=== PATIENT | male | born 1935 | race Caucasian/White ===

== ENCOUNTER 2016-12-27 12:07 | Observation (INO) | payer MEDICARE, OTHER, BC ==
[2016-12-27] MEDS ORDERED: SODIUM CHLORIDE 0.9% 1,000 ML IV ONE ×2 (13:42)
[2016-12-27] MEDS ORDERED: HYDROcod/ACETAM 5/325 MG TABLET PO PRN (14:30)
[2016-12-27] MEDS ORDERED: ACETAMINOPHEN 325 MG TABLET PO PRN (14:30)
[2016-12-27] MEDS ORDERED: NITROGLYCERIN SL 0.4 MG TABLET SL PRN (14:30)
[2016-12-27] MEDS ORDERED: SODIUM CHLORIDE FLUSH 0.9% 10 ML SYRINGE IVP PRN (14:30)
[2016-12-27] MEDS ORDERED: MORPHINE 2 MG/ML SYRINGE IVP PRN (14:30)
[2016-12-27] MEDS ORDERED: ONDANSETRON 4 MG/2 ML VIAL IVP PRN (14:30)
[2016-12-27] MEDS ORDERED: HYDROcod/ACETAM 10 MG/325 MG TABLET PO PRN (14:30)
[2016-12-27] MEDS ORDERED: ZOLPIDEM 5 MG TABLET PO PRN (14:30)
[2016-12-27] MEDS: SODIUM CHLORIDE 0.9% 1,000 ML IV SCH ×2 (15:21→20:47)
[2016-12-27] MEDS: CARVEDILOL 3.125 MG TABLET PO SCH (20:21)
[2016-12-27] MEDS: FLUTICASONE NASAL SPRAY NAS SCH (20:22)
[2016-12-27] MEDS: SODIUM CHLORIDE FLUSH 0.9% 10 ML SYRINGE IVP SCH (20:26)
[2016-12-27] MEDS ORDERED: ATORVASTATIN 10 MG TABLET PO SCH (21:00)
[2016-12-28] MEDS: SODIUM CHLORIDE 0.9% 1,000 ML IV SCH (06:39)
[2016-12-28] MEDS: SODIUM CHLORIDE FLUSH 0.9% 10 ML SYRINGE IVP SCH ×2 (06:47→14:08)
[2016-12-28] MEDS ORDERED: PANTOPRAZOLE 40 MG TABLET PO SCH (07:00)
[2016-12-28] MEDS ORDERED: ENOXAPARIN 40 MG/0.4 ML SYRINGE SUBQ SCH (09:00)
[2016-12-28] MEDS ORDERED: POLYETHYLENE GLYCOL 3350 17 GM PACKET PO SCH (09:00)
[2016-12-28] MEDS ORDERED: ASPIRIN EC 81 MG TABLET PO SCH (09:00)
[2016-12-28] MEDS ORDERED: CLOPIDOGREL 75 MG TABLET PO SCH (09:00)
[2016-12-28] MEDS ORDERED: LISINOPRIL 5 MG TABLET PO SCH (09:00)
[2016-12-28] MEDS: CARVEDILOL 3.125 MG TABLET PO SCH (09:28)
[2016-12-28] MEDS: FLUTICASONE NASAL SPRAY NAS SCH ×2 (09:28→09:37)
[2016-12-28] MEDS ORDERED: METOPROLOL 5 MG/5 ML VIAL IVP STA (10:08)
== END 2016-12-28 14:48 | disposition home or self-care (01) ==
DX: R42 Dizziness and giddiness (principal); I25.10 Atherosclerotic heart disease of native coronary artery without angina pectoris; I10 Essential (primary) hypertension; I69.354 Hemiplegia and hemiparesis following cerebral infarction affecting left non-dominant side; I48.91 Unspecified atrial fibrillation; I69.398 Other sequelae of cerebral infarction; J38.00 Paralysis of vocal cords and larynx, unspecified; I65.29 Occlusion and stenosis of unspecified carotid artery; I25.2 Old myocardial infarction; Z95.5 Presence of coronary angioplasty implant and graft; Z79.82 Long term (current) use of aspirin; Z79.02 Long term (current) use of antithrombotics/antiplatelets; Z86.69 Personal history of other diseases of the nervous system and sense organs; Z87.891 Personal history of nicotine dependence; Z90.79 Acquired absence of other genital organ(s)
CPT/HCPCS: 36415; 71010; 80048; 80053; 80061; 83690; 84484; 85025; 93005; 93010; 93306; 96360; 96361; 96372; 99284; A9270; G0378; J1650

== ENCOUNTER 2017-11-09 08:00 | Outpatient (CLI) | payer MEDICARE, BC ==
[2017-11-09 19:17] LABS: ALBUMIN 4.5 g/dL (3.2-5.5); ALBUMIN/GLOBULIN RATIO 1.7 (1.0-2.2); ALKALINE PHOSPHATASE 39 IU/L (42-121); ALT ALANINE AMINOTRANSFERASE 19 IU/L (10-60); AST ASPARTATE AMINOTRANSFERASE 19 IU/L (10-42); BILIRUBIN,TOTAL 0.9 mg/dL (0.2-1.0); BUN - BLOOD UREA NITROGEN 14 mg/dL (6-20); CARBON DIOXIDE - CO2 27 mmol/L (21-32); CHLORIDE 102 mmol/L (101-111); CHOL/HDL RATIO 2.9 (<5.0); CHOLESTEROL 141 mg/dL; CREATININE 0.9 mg/dL (0.6-1.2); GFR - MDRD 81 (>89); GLUCOSE 84 mg/dL (70-100); HDL CHOLESTEROL 49 mg/dL; LDL CHOLESTEROL,CALCULATED 79 mg/dL; LDL/HDL RATIO 1.6 (<3.6); SODIUM 137 mmol/L (135-145); TOTAL PROTEIN 7.1 g/dL (6.7-8.2); VLDL CHOLESTEROL 13 mg/dL
[2017-11-09 19:23] LABS: BASOPHILS % (AUTO) 0.1 %; EOSINOPHILS % (AUTO) 1.1 %; HGB - HEMOGLOBIN 13.7 g/dL (14.0-18.0); LYMPHOCYTES # (AUTO) 1.9 10^3/uL (1.5-3.5); LYMPHOCYTES % (AUTO) 46.8 %; MEAN CORPUSCULAR HGB CONC 33.2 g/dL (32.0-36.0); MEAN CORPUSCULAR VOLUME 81.4 fL (80.0-94.0); MEAN PLATELET VOLUME 8.9 fL (7.4-11.4); MONOCYTES # (AUTO) 0.3 10^3/uL (0.0-1.0); MONOCYTES % (AUTO) 6.7 %; NEUTROPHILS # (AUTO) 1.8 10^3/uL (1.5-6.6); NEUTROPHILS % (AUTO) 45.3 %; PLT - PLATELET COUNT 129 10^3/uL (130-450); RED BLOOD COUNT 5.07 10^6/uL (4.70-6.10); RED CELL DISTRIBUTION WIDTH 14.1 % (12.0-15.0)
== END 2017-11-09 08:01 | disposition home or self-care (01) ==
LOC: LAB.WCP 08:00
PROVIDERS: ATTEND Family Medicine
DX: I25.10 Atherosclerotic heart disease of native coronary artery without angina pectoris (principal)
CPT/HCPCS: 36415; 80053; 80061; 83721; 85025

== ENCOUNTER 2017-12-07 22:09 | Outpatient (CLI) | payer MEDICARE, BC | END 2017-12-07 22:10 | disposition EMS.NT | LOC: EMS 22:09 | PROVIDERS: ATTEND Surgery | DX: Z03.89 Encounter for observation for other suspected diseases and conditions ruled out (principal); W18.30XA Fall on same level, unspecified, initial encounter; Y92.009 Unspecified place in unspecified non-institutional (private) residence as the place of occurrence of the external cause; Z79.01 Long term (current) use of anticoagulants ==

== ENCOUNTER 2017-12-07 23:27 | Emergency (ER) | payer MEDICARE, BC ==
[2017-12-07] MEDS ORDERED: BACITRACIN OINT TOP STA (23:35)
[2017-12-07] MEDS ORDERED: BACITRACIN OINT TOP ONE (23:45)
--- NOTE | 2017-12-08 00:34 | ED Physician Documentation ---
PD HPI Fall - Stated complaint Stated Complaint: GLF - Chief complaint Chief Complaint: Laceration - History obtained from History obtained from: Patient, Family - History of Present Illness Mechanism of injury: Slipped Fall distance: Standing position Timing - onset: Today Injury(ies) location: Head, Left Lower Extremity Quality of pain: Aching Associated symptoms: No: LOC, AMS Contributing factors: Anticoagulated Recently seen: Not recently seen - Additional information Additional information: Patient is an 82 year old male with a history of mulitple strokes with left side deficit, and prior brain surgery who is presenting to the emergency department after falling. According to patient and the patient had taken a long shower and when he was getting out he slipped and fell, Patient scraped his left shoulder and bumped the side of his right head. Review of Systems Constitutional: reports: Reviewed and negative Eyes: denies: Decreased vision, Photophobia Ears: denies: Ear pain, Drainage/discharge Nose: denies: Epistaxis Throat: denies: Dental pain / toothache Cardiac: reports: Reviewed and negative Respiratory: reports: Reviewed and negative GI: denies: Nausea, Vomiting : reports: Reviewed and negative Skin: reports: Lesions, Abrasion (s) Musculoskeletal: reports: Extremity pain Neurologic: reports: Head injury. denies: Generalized weakness, Focal weakness , Headache, LOC Immunocompromised: denies: Immunocompromised PD PAST MEDICAL HISTORY - Past Medical History Past Medical History: Yes Cardiovascular: IN Respiratory: Sleep apnea Neuro: CVA, Head injury, Other Endocrine/Autoimmune: None GI: None : Benign prostate hypertrophy HEENT: Chronic hearing loss Psych: None Musculoskeletal: Osteoarthritis Derm: Eczema Other Past Medical History: L sided deficit - Past Surgical History Past Surgical History: Yes Cardiovascular: Coronary stent Neuro: Craniotomy - Present Medications Home Medications: Ambulatory Orders Medication Instructions Recorded Confirmed Clopidogrel Bisulfate [Plavix] 75 mg PO DAILY 06/24/15 12/27/16 Aspirin [Aspir-Low] 81 mg DAILY 12/27/16 12/27/16 Carvedilol [Coreg] 6.25 mg PO BID 12/27/16 12/27/16 Fluticasone [Flonase] 2 sprays GABRIELLA BID 12/27/16 12/27/16 Lisinopril 5 mg PO DAILY 12/27/16 12/27/16 Polyethylene Glycol 3350 [Miralax] 17 - 34 gm PO DAILY PRN 12/27/16 12/27/16 Rosuvastatin Calcium [Crestor] 10 mg PO QPM 12/27/16 12/27/16 - Allergies Allergies/Adverse Reactions: Allergies Allergy/AdvReac Type Severity Reaction Status Date / Time No Known Drug Allergies Allergy Verified 12/07/17 23:39 - Social History Does the pt smoke?: No Smoking Status: Never smoker Does the pt drink ETOH?: No Does the pt have substance abuse?: No - Immunizations Immunizations are current?: No Immunizations: TDAP current <10years - POLST Patient has POLST: No PD ED PE NORMAL - Vitals Vital signs reviewed: Yes - General General: Alert and oriented X 3, No acute distress - Neck Neck: Supple, no meningeal sign, No bony TTP - Cardiac Cardiac: RRR, No murmur - Respiratory Respiratory: No respiratory distress - Abdomen Abdomen: Soft - Neuro Neuro: Alert and oriented X 3, Normal speech Eye Opening: Spontaneous Motor: Obeys Commands Verbal: Oriented GCS Score: 15 PD ED PE EXPANDED - HEENT HEENT: Head injury (mild tenderness to right posterior scalp, no active bleeding ) - Extremities Extremities: Left shoulder (decreased rom secondary to stroke with abrasion on posterior shoulder) Results - Vitals Vitals: Vital Signs - 24 hr 12/07/17 12/08/17 12/08/17 23:33 00:35 01:25 Temperature 36.4 C L Heart Rate 64 59 L 60 Respiratory 19 16 18 Rate Blood Pressure 152/79 H 163/85 H 148/85 H O2 Saturation 96 97 100 Oxygen O2 Source Room air - Rads (name of study) shoulder x-ray Radiology: Final report received (no acute bony abnormality) ct head Radiology: Final report received (no acute findings) PD MEDICAL DECISION MAKING - ED course Complexity details: reviewed old records, reviewed results, re-evaluated patient , considered differential, d/w patient, d/w family ED course: Patient was seen and examined at bedside. Imaging was ordered. when patient returned the results were reviewed. there was no acute findings. Patient's wound was cleaned. Patient required no further work up and was stable for discharge with outpatient follow up. Departure - Departure Disposition: 01 Home, Self Care Clinical Impression: Abrasion Condition: Good Instructions: ED Abrasion Follow-Up: primary,care provider [Other] - As Needed Comments: there were no acute abnormalities on the imaging today. You should keep the wound clean and dry and apply topical antibiotics as needed. You can follow up with your doctor as needed for re-evaluation. Discharge Date/Time: 12/08/17 01:27
--- NOTE | 2017-12-08 00:40 | XRAY Report ---
EXAM: LEFT SHOULDER RADIOGRAPHY EXAM DATE: 12/08/2017 12:11 AM. CLINICAL HISTORY: Fall, shoulder pain. COMPARISON: None. TECHNIQUE: 3 views. FINDINGS: Bones: No acute displaced fractures or suspicious bony lesion. However, bones are osteopenic. This r educes exam sensitivity and specificity for detection of subtle bony lesions and/or fractures. Joints: No dislocation. There is severe glenohumeral degenerative change. Mild acromioclavicular join t degenerative change. Soft Tissues: No significant soft tissue swelling. IMPRESSION: No acute osseous abnormality demonstrated. [facility] Referring Provider Line: [phone] SITE ID: [id number]
--- NOTE | 2017-12-08 01:11 | CT Report ---
EXAM: CT HEAD EXAM DATE: 12/08/2017 12:10 AM. CLINICAL HISTORY: Fall, head trauma, on eliquis. COMPARISON: None. TECHNIQUE: Multiaxial CT images were obtained from the foramen magnum to the vertex. Reformats: Coron al. IV contrast: None. In accordance with CT protocol optimization, one or more of the following dose reduction techniques w ere utilized for this exam: automated exposure control, adjustment of mA and/or KV based on patient s ize, or use of iterative reconstructive technique. FINDINGS: As post prior right anterior frontal craniotomy. Parenchyma: No intraparenchymal hemorrhage. There are areas of right frontal and right parietal encep halomalacia. Small low density focus in right basal ganglia. Small low density focus in left thalamus . Extraaxial Spaces: Dilatation of sulci throughout right cerebral hemisphere. No subdural or epidural collections identified. Ventricles: Ex vacuo dilatation of right lateral ventricle. No mass effect. No midline shift. Sinuses and Orbits: Imaged paranasal sinuses, orbits, and mastoids show no significant abnormality. Bones: Dense of fracture. Other: None. IMPRESSION: 1. No evidence of acute intra-cranial process. 2. Changes status post prior right frontal craniotomy. 3. Right frontal and right parietal encephalomalacia. [facility] Referring Provider Line: [phone] SITE ID: [id number]
--- NOTE | 2017-12-08 01:11 | CT Preliminary Report ---
Exam: CT HEAD W/O IMPRESSION: 1. No evidence of acute intra-cranial process. 2. Changes status post prior right frontal craniotomy. 3. Right frontal and right parietal encephalomalacia. [facility] SITE ID: [id number]
[2017-12-08 01:50] VITALS: BP 148/85
== END 2017-12-08 01:27 | disposition home or self-care (01) ==
LOC: ED 23:27
DX: S40.212A Abrasion of left shoulder, initial encounter (principal); S09.90XA Unspecified injury of head, initial encounter; W01.0XXA Fall on same level from slipping, tripping and stumbling without subsequent striking against object, initial encounter; I69.398 Other sequelae of cerebral infarction; I25.2 Old myocardial infarction; Z95.5 Presence of coronary angioplasty implant and graft; Z79.82 Long term (current) use of aspirin
CPT/HCPCS: 70450; 73030; 99283; 99284; A9270

== ENCOUNTER 2018-04-19 08:00 | Outpatient (CLI) | payer MEDICARE, BC ==
[2018-04-19 19:52] LABS: ALBUMIN 4.2 g/dL (3.2-5.5); ALBUMIN/GLOBULIN RATIO 1.4 (1.0-2.2); ALKALINE PHOSPHATASE 41 IU/L (42-121); ALT ALANINE AMINOTRANSFERASE 17 IU/L (10-60); AST ASPARTATE AMINOTRANSFERASE 18 IU/L (10-42); BILIRUBIN,TOTAL 1.3 mg/dL (0.2-1.0); BUN - BLOOD UREA NITROGEN 18 mg/dL (6-20); CARBON DIOXIDE - CO2 28 mmol/L (21-32); CHLORIDE 105 mmol/L (101-111); CHOL/HDL RATIO 2.7 (<5.0); CHOLESTEROL 131 mg/dL; CREATININE 0.9 mg/dL (0.6-1.2); GFR - MDRD 81 (>89); GLUCOSE 92 mg/dL (70-100); HDL CHOLESTEROL 48 mg/dL; LDL CHOLESTEROL,CALCULATED 70 mg/dL; LDL/HDL RATIO 1.5 (<3.6); SODIUM 139 mmol/L (135-145); TOTAL PROTEIN 7.1 g/dL (6.7-8.2); VLDL CHOLESTEROL 13 mg/dL
== END 2018-04-19 08:01 | disposition home or self-care (01) ==
LOC: LAB.WCP 08:00
PROVIDERS: ATTEND Physician Assistant Medical
DX: E78.5 Hyperlipidemia, unspecified (principal); Z85.46 Personal history of malignant neoplasm of prostate
CPT/HCPCS: 36415; 80053; 80061; G0103; 83721; 84153

== ENCOUNTER 2018-12-28 17:17 | Outpatient (CLI) | payer MEDICARE, BC | END 2018-12-28 17:18 | disposition EMS.NT | LOC: EMS 17:17 | PROVIDERS: ATTEND Surgery | DX: R53.1 Weakness (principal) ==